=== PATIENT | male | born 1990 | race Two or more races ===

== ENCOUNTER 2017-03-19 23:18 | Day surgery (SDC) | payer OTHER ==
[~2017-03-19] VITALS: Ht 160 cm; Wt 60.3 kg
[2017-03-20] MEDS ORDERED: ONDANSETRON 2MG/ML, 2ML ONE (00:09)
[2017-03-20] MEDS ORDERED: MORPHINE SULFATE 4 MG/ML, 1ML ONE (00:09)
[2017-03-20] MEDS ORDERED: SODIUM CHLORIDE FLUSH 10ML SYR IVF ONE (00:30)
[2017-03-20] MEDS ORDERED: MORPHINE SULFATE 4 MG/ML, 1ML IVPush PRN (00:30)
[2017-03-20] MEDS ORDERED: ONDANSETRON 2MG/ML, 2ML IVPush ONE (00:30)
[2017-03-20 00:32] LABS: ASPARTATE AMINO TRANSFERASE 17 U/L (15-37); BLOOD UREA NITROGEN 16 mg/dL (7-18)
[2017-03-20] MEDS ORDERED: OMNIPAQUE 350 MG/ML, 100ML BOTTLE ONE (00:57)
[2017-03-20] MEDS ORDERED: SODIUM CHLORIDE 0.9% 1,000 ML IV ONE (01:24)
[2017-03-20] MEDS ORDERED: CEFOTETAN PMX 1GM/50ML 50 ML IV ONE (01:30)
[2017-03-20] MEDS ORDERED: ONDANSETRON 2MG/ML, 2ML IVPush PRN ×3 (01:30→09:30)
[2017-03-20] MEDS ORDERED: SODIUM CHLORIDE 0.9% 1,000ML IVBOLUS ONE (01:30)
[2017-03-20] MEDS ORDERED: SODIUM CHLORIDE FLUSH 10ML SYR IVF PRN (01:30)
[2017-03-20] MEDS ORDERED: HYDROmorphone 1 MG/ML, 1ML IVPush PRN (01:30)
[2017-03-20 03:01] VITALS: BP 125/74
[2017-03-20 07:10] VITALS: BP 121/73
[2017-03-20] MEDS ORDERED: BUPIVACAINE/PF-EPI 0.25% 1:200K ONE (08:27)
[2017-03-20] MEDS ORDERED: MIDAZOLAM 1 MG/ML, 2ML ONE (08:28)
[2017-03-20] MEDS ORDERED: FENTANYL PF 250 MCG/5ML ONE (08:28)
[2017-03-20] MEDS ORDERED: HYDROmorphone 1 MG/ML, 1ML IV PRN (09:00)
[2017-03-20] MEDS ORDERED: OXYcodone 5 MG/5 ML ORAL.SOL UDC PO PRN ×2 (09:00→09:30)
[2017-03-20] MEDS ORDERED: ACETAMINOPHEN 325 MG TABLET PO PRN (09:00)
[2017-03-20] MEDS ORDERED: PROMETHAZINE 25 MG/ML, 1ML IV PRN (09:00)
[2017-03-20] MEDS ORDERED: METOCLOPRAMIDE 5 MG/ML, 2ML IV PRN (09:00)
[2017-03-20] MEDS ORDERED: FENTANYL PF 100 MCG/2ML IV PRN (09:00)
[2017-03-20] MEDS ORDERED: LACTATED RINGERS 1,000 ML IV SCH (09:26)
[2017-03-20] MEDS ORDERED: HYDROmorphone 2 MG/ML, 1ML IVPush PRN (09:30)
[2017-03-20] MEDS ORDERED: DIPHENHYDRAMINE 50 MG/ML, 1ML IVPush PRN (09:30)
[2017-03-20] MEDS ORDERED: ACETAMINOPHEN 325 MG TABLET ONE (09:55)
[2017-03-20] MEDS ORDERED: OXYcodone 5 MG/5 ML ORAL.SOL UDC ONE (09:55)
[2017-03-20] MEDS ORDERED: ACETAMINOPHEN 650 MG/20.3 ML UDC ONE (09:55)
[2017-03-20] MEDS ORDERED: MEPERIDINE/PF 25MG/0.5ML ONE (09:59)
[2017-03-20] MEDS ORDERED: MEPERIDINE/PF 25MG/0.5ML IVPush PRN (10:00)
[2017-03-20] MEDS ORDERED: ROCURONIUM 10 MG/ML ONE (15:30)
[2017-03-20] MEDS ORDERED: SUCCINYLCHOLINE 20 MG/ML, 10ML ONE (15:30)
[2017-03-20] MEDS ORDERED: GLYCOPYRROLATE 0.2MG/1ML ONE (15:30)
[2017-03-20] MEDS ORDERED: PROPOFOL 10 MG/ML, 20ML ONE (15:30)
[2017-03-20] MEDS ORDERED: NEOSTIGMINE 1 MG/ML, 10ML ONE (15:30)
== END 2017-03-20 13:30 | disposition home or self-care (01) ==
LOC: ED 03-20 00:05 → 4NOR 03-20 01:59 → SDC 03-20 03:11 → UNDOADMIN 03-20 03:11 → 4NOR 03-20 03:11 → SDC 03-20 13:30 → UNDODISIN 03-20 13:30
PROVIDERS: ATTEND Surgery
DX: K35.80 Unspecified acute appendicitis (principal); F17.290 Nicotine dependence, other tobacco product, uncomplicated
CPT/HCPCS: 36415; 44970; 74020; 74177; 80053; 81003; 83690; 85025; 88304; 96374; 99285; J0330; J1170; J2175; J2250; J2405; J2704; J2710; J3010; J7030; Q9967; S0074; J3490